=== PATIENT | male | born 1945 | race Caucasian/White ===

== ENCOUNTER 2023-01-25 08:07 | Day surgery (SDC) | payer MEDICARE, OTHER, SELFPAY ==
[2023-01-25] VITALS (9 sets, daily range): BP systolic 139–161; BP diastolic 78–100; PULSE 68–80; RESP 15–22; TEMP 36.1–36.3; O2SAT 93–99; BMI 26.1
[2023-01-25] MEDS: LACTATED RINGER'S SOLUTION 1,000 ML 50 ML IV (08:51)
--- NOTE | 2023-01-25 10:16 | OP_ITS ---
OPERATION DATE: ??01/25/2023 PRIMARY CARE PHYSICIAN:? Maduh Taylor D.O. SURGEON:? Yessy Muñoz M.D. PREOPERATIVE DIAGNOSIS:?? Right eustachian tube dysfunction. POSTOPERATIVE DIAGNOSIS:? Right eustachian tube dysfunction. PROCEDURE:? Right T-tube. ANESTHESIA:? General LMA. COMPLICATIONS:? None. FINDINGS: Right serous effusion. INDICATIONS:? This 77-year-old man presented with right otitis media with effusion and a many year history of right eustachian tube dysfunction and otitis media with effusion, treated with multiple sets of T-tubes. PROCEDURE:? Patient identified in the holding area and taken back to the OR where he was placed in the supine position.? After induction of general anesthesia by mask, the right ear was approached with the otomicroscope.? Cerumen cleaned from the canal using a cerumen curette, and an anterior radial myringotomy was performed.? A modified Kaiser?s T-tube was folded and inserted in the myringotomy using microdissection.? The flanges of the tube were then opened in the middle ear.? Patient was then awakened and taken to the recovery room in good condition. CHRISTIANO
== END 2023-01-25 11:10 | disposition home or self-care (01) ==
PROVIDERS: PCP Internal Medicine; Visit Provider Otolaryngology
PROC: (CPT 69436; principal; 2023-01-25 09:30)
DX: H69.81 Other specified disorders of Eustachian tube, right ear (principal); E78.5 Hyperlipidemia, unspecified; Z85.828 Personal history of other malignant neoplasm of skin; Z79.82 Long term (current) use of aspirin; Z79.899 Other long term (current) drug therapy
CPT/HCPCS: 69436; J2704

== ENCOUNTER 2024-04-02 07:46 | Outpatient (OUT) | payer MEDICARE, OTHER, SELFPAY ==
--- NOTE | 2024-04-02 08:00 | XR_ITS ---
The [address] [address] Patient Name: SHERRI BRIGGS MRN: [id number] date: 1945 Sex: M Assigned Patient Location: [facility] Current Patient Location: Accession/Order Number: [id number] Exam Date: 04/02/2024 08:45 Report Date: 04/03/2024 10:37 At the request of: JOSSY JOHN Procedure: XR chest 2V PROCEDURE: XR chest 2V DATE: 04/02/2024 7:45 AM CDT COMPARISONS: None. CLINICAL INDICATION: 79 years Male Preop exam FINDINGS: The cardiomediastinal silhouette and pulmonary vasculature are within normal limits. There are a few scattered subcentimeter granuloma of the lungs. The lungs are otherwise clear. There is no evidence of pleural effusion or pneumothorax. XR/XR chest 2V IMPRESSION: Chest radiograph is essentially within normal limits. Electronically authenticated by: MO HERNANDEZ Date: 04/03/2024 10:37
--- NOTE | 2024-04-02 08:00 | ECG_ITS ---
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
--- NOTE | 2024-04-02 08:42 | P.GSHP_ITS ---
History of Present Illness History of Present Illness Chief complaint: etd Narrative: Patient presents for preadmission testing. The patient reports a long history of ear problems with ear infections. He had a ventilation tube inserted here at [facility] last January, but states he had an increase in ear infections and the tube was subsequently removed. The patient states he continues to have decreased hearing particularly on the right side. He denies any recent ear infections, fever, epistaxis, sore throat, or any other complaints. The patient states he is very active, he golfs, hunts, and exercises on the [employer] regularly. The patient states while he has not had any episodes of ch est pain he does notice he has intermittent dyspnea with his activities. He does see cardiology in [place]. Review of Systems ROS Narrative REVIEW OF SYSTEMS: Negative except as stated in HPI, ten or more systems reviewed. Constitutional: No fever, chills, weakness ENT: No sore throat or epistaxis Cardiovascular: No edema, chest pain, or palpitations Respiratory: No cough or wheezing Musculoskeletal: No joint pain or swelling Gastrointestinal: No abdominal pain, constipation, diarrhea, or vomiting Genitourinary: No dysuria or hematuria Neurological: No numbness, tingling, weakness, or headache Psychiatric: No mood changes [facility] Medical History (Updated 04/02/24 @ 08:47 by Rosario Galvez NP) Cataract ?H26.9 - Unspecified cataract (ICD-10) Back pain ?M54.9 - Dorsalgia, unspecified (ICD-10) Night terror ?F51.4 - Sleep terrors [night terrors] (ICD-10) Chronic kidney disease ?N18.9 - Chronic kidney disease, unspecified (ICD-10) Hyperlipidemia ?E78.5 - Hyperlipidemia, unspecified (ICD-10) Coronary artery disease ?I25.10 - Atherosclerotic heart disease of [place] coronary artery without angina pectoris (ICD-10) Acute otitis media ?H66.90 - Otitis media, unspecified, unspecified ear (ICD-10) Right otitis media with effusion ?H65.91 - Unspecified nonsuppurative otitis media, right ear (ICD-10) Joint pain ?M25.50 - Pain in unspecified joint (ICD-10) Heartburn ?R12 - Heartburn (ICD-10) SARS-CoV-2 positive ?U07.1 - COVID-19 (ICD-10) Sleep disorder ?G47.9 - Sleep disorder, unspecified (ICD-10) High cholesterol ?E78.00 - Pure hypercholesterolemia, unspecified (ICD-10) Hearing loss ?H91.90 - Unspecified hearing loss, unspecified ear (ICD-10) Headache ?R51.9 - Headache, unspecified (ICD-10) Head injury ?S09.90XA - Unspecified injury of head, initial encounter (ICD-10) Dysfunction of eustachian tube ?H69.80 - Other specified disorders of Eustachian tube, unspecified ear (ICD- 10) Chronic otitis media ?H66.90 - Otitis media, unspecified, unspecified ear (ICD-10) BPH (benign prostatic hyperplasia) ?N40.0 - Benign prostatic hyperplasia without lower urinary tract symptoms (ICD-10) Skin cancer ?C44.90 - Unspecified malignant neoplasm of skin, unspecified (ICD-10) Surgical History (Updated 03/29/24 @ 10:47 by Rosario Galvez NP) History of tympanostomy tube placement (01/25/23) ?Z96.22 - Myringotomy tube(s) status (ICD-10) H/O endoscopic sinus surgery ?Z98.890 - Other specified postprocedural states (ICD-10) History of tonsillectomy ?Z90.89 - Acquired absence of other organs (ICD-10) Hx of foot surgery ?Z98.890 - Other specified postprocedural states (ICD-10) H/O nasal septoplasty ?Z98.890 - Other specified postprocedural states (ICD-10) History of cataract surgery ?Z98.49 - Cataract extraction status, unspecified eye (ICD-10) H/O myringotomy ?Z98.890 - Other specified postprocedural states (ICD-10) Hx of basal cell carcinoma excision ?Z98.890 - Other specified postprocedural states (ICD-10) ?Z85.828 - Personal history of other malignant neoplasm of skin (ICD-10) History of colonoscopy ?Z98.890 - Other specified postprocedural states (ICD-10) History of cardiac cath ?Z98.890 - Other specified postprocedural states (ICD-10) Family History (Updated 01/21/23 @ 12:49 by Lluvia Garvin) Other Emphysema lung Family history of cancer Family history of stroke Heart disease Social History (Updated 01/21/23 @ 13:56 by Lluvia Garvin) Within the past year, how often did you have a drink containing alcohol: 4 or more times a week Within the past year, how many standard drinks containing alcohol did you have on a typical day: 5 or 6 Smoking status: Former smoker Highest level of school completed/degree received: high school graduate Meds Home Medications and Allergies Home Medications ?Medication ?Instructions ?Recorded ?Confirmed ?Type Fiber BID 01/21/23 History aspirin 81 mg capsule 81 mg PO DAILY 01/21/23 04/02/24 History atorvastatin 40 mg tablet 40 mg PO DAILY 01/21/23 04/02/24 History cholecalciferol (vitamin D3) 25 1,000 unit PO DAILY 01/21/23 04/02/24 History mcg (1,000 unit) capsule glucosamine [id number] 1 tab PO DAILY 01/21/23 04/02/24 History jessy 1,500 mg-400 unit-100 mg tablet (Osteo Bi-Flex (5-Loxin)) ezetimibe 10 mg tablet 10 mg PO DAILY 04/02/24 04/02/24 History Allergies Allergy/AdvReac Type Severity Reaction Status Date / Time amoxicillin Allergy Rash Verified 01/21/23 12:43 moxifloxacin Allergy Hives Verified 01/21/23 12:46 tamsulosin Allergy syncope Verified 01/21/23 12:46 Sulfa (Sulfonamide AdvReac Diarrhea Verified 01/21/23 12:46 Antibiotics) Exam Narrative Exam Narrative: Constitutional: Awake, alert, comfortable, well-appearing, nontoxic, interactive, vital signs as charted Head: Normocephalic, atraumatic Eyes: Conjunctiva and lids normal to inspection, pupils normal ENT: Left tympanic membranes pearly fung, right TM effusion, naris patent, posterior oropharynx clear, oral mucosa moist Neck: Supple, normal appearance, normal range of motion, no meningeal signs, no lymphadenopathy Respiratory: No respiratory distress, breath sounds clear Cardiovascular: Regular rate and rhythm, strong and regular heart tones Musculoskeletal: Normal gait, no swelling or edema Skin: No rashes or induration, no lesions, only visible skin inspected Neuro: No neurological deficits, normal sensation Psychiatric: Oriented ?3, normal affect Assessment and Plan Assessment and Plan (1) Right otitis media with effusion: (2) Dysfunction of eustachian tube: Plan Right myringotomy with insertion of ventilation tubes, T tubes scheduled with Dr. Muñoz April 17, 2024.
[2024-04-02 08:44] LABS: Basophils Percent Auto 0.4 % (0.2-2.0); Eosinophils Absolute Auto 0.5 10^3/uL (0.0-0.7); Eosinophils Percent Auto 6.5 % (0.9-7.0); Hematocrit 40.8 % (42.0-54.0); Hemoglobin 13.2 g/dL (14.0-18.0); Immature Granulocytes Abs Auto 0.01 10^3/uL (0.00-0.03); Immature Granulocytes Pct Auto 0.1 % (0.0-0.5); Lymphocytes Absolute Auto 1.5 10^3/uL (1.2-3.8); Lymphocytes Percent Auto 20.7 % (20.5-60.0); Mean Corpuscular HGB Conc 32.4 g/dL (29.9-35.2); Mean Corpuscular Hemoglobin 31.8 pg (25.9-34.0); Mean Corpuscular Volume 98.3 fL (80.0-94.0); Mean Platelet Volume 11.2 fL (9.5-13.5); Monocytes Absolute Auto 0.8 10^3/uL (0.3-0.8); Monocytes Percent Auto 11.5 % (1.7-12.0); Neutrophils Absolute Auto 4.3 10^3/uL (1.4-6.5); Neutrophils Percent Auto 60.8 % (43.0-75.0); Platelet Count 206 10^3/uL (150-450); Red Blood Count 4.15 10^6/uL (4.70-6.10); Red Cell Distribution Width 13.1 % (11.0-15.0); White Blood Count 7.1 10^3/uL (4.0-11.0)
[2024-04-02 08:53] LABS: Anion Gap 8.7; BUN Creatinine Ratio 18.8; Calcium 9.3 mg/dL (8.5-10.1); Carbon Dioxide 29.9 mmol/L (21.0-32.0); Chloride 105 mmol/L (98-107); Estimated GFR (African America 55 (>=60); Estimated GFR (Non-African Ame 45 (>=60); Glucose 107 mg/dL (74-106); Potassium 4.6 mmol/L (3.5-5.1); Sodium 139 mmol/L (136-145)
[2024-04-02 09:02] LABS: INR 0.96; Partial Thromboplastin Time 27.5 sec (22.3-36.2); Prothrombin Time 10.2 sec (9.0-11.6)
== END 2024-04-02 07:47 | disposition home or self-care (01) ==
PROVIDERS: PCP Internal Medicine; Visit Provider Otolaryngology
DX: Z01.810 Encounter for preprocedural cardiovascular examination (principal); Z01.812 Encounter for preprocedural laboratory examination; Z01.818 Encounter for other preprocedural examination; H65.91 Unspecified nonsuppurative otitis media, right ear
CPT/HCPCS: 71046; 80048; 85025; 85610; 85730; 93005; G0463

== ENCOUNTER 2024-04-17 08:30 | Day surgery (SDC) | payer MEDICARE, OTHER, SELFPAY ==
[2024-04-02 08:40] VITALS: BP 144/74; PULSE 63; TEMP 36.3; O2SAT 99; BMI 25.7
[2024-04-17] VITALS (11 sets, daily range): BP systolic 138–171; BP diastolic 76–94; PULSE 58–74; TEMP 36.1–36.2; O2SAT 94–99; BMI 25.6
--- NOTE | 2024-04-17 | OP_ITS ---
OPERATION DATE: 04/17/2024 PRIMARY CARE PHYSICIAN: Madhu Taylor D.O. SURGEON: Yessy Muñoz M.D. PREOPERATIVE DIAGNOSIS: Right eustachian tube dysfunction. POSTOPERATIVE DIAGNOSIS: Right eustachian tube dysfunction. PROCEDURE: Right myringotomy and tube with microdissection, placement of a T- tube ANESTHESIA: General LMA. COMPLICATIONS: None. FINDINGS: Right serous effusion. INDICATIONS: This 79-year-old man presented with a history of chronic right eustachian tube dysfunction. He has undergone placement of multiple tubes with prompt development of otitis media with effusion once the tubes are out. PROCEDURE: Patient identified in the holding area and taken back to the OR where he was placed in the supine position. After induction of general anesthesia, the right ear was approached with the otomicroscope. The ear canal was prepped with isopropyl alcohol and suction, and then an anterior radial myringotomy was performed and a modified Kaiser?s T-tube was folded and inserted in the middle ear using microdissection. Patient was then awakened and taken to the recovery room in good condition. CHRISTIANO
[2024-04-17] MEDS: LACTATED RINGER'S SOLUTION 1,000 ML 50 ML IV (08:56)
== END 2024-04-17 11:10 | disposition home or self-care (01) ==
PROVIDERS: PCP Internal Medicine; Visit Provider Otolaryngology
PROC: (CPT 69436; principal; 2024-04-17 10:00)
DX: H65.91 Unspecified nonsuppurative otitis media, right ear (principal); H69.91 Unspecified Eustachian tube disorder, right ear; Z87.891 Personal history of nicotine dependence; E78.5 Hyperlipidemia, unspecified; K21.9 Gastro-esophageal reflux disease without esophagitis; N40.0 Benign prostatic hyperplasia without lower urinary tract symptoms; H91.90 Unspecified hearing loss, unspecified ear
CPT/HCPCS: 69436; 36415; J1100; J2371; J2405; J2704